=== PATIENT | female | born 1975 | race American Indian/Alaskan Native ===

== ENCOUNTER 2021-06-13 14:33 | Emergency (ER) | payer SELFPAY ==
[2021-06-13 15:17] VITALS: BP 141/85
--- NOTE | 2021-06-13 16:03 | XRay Report ---
CHEST 2 VIEWS INDICATION / CLINICAL INFORMATION: chest pain. COMPARISON: None available. FINDINGS: SUPPORT DEVICES: None. HEART / MEDIASTINUM: No significant abnormality. LUNGS / PLEURA: No significant pulmonary abnormality. No significant pleural effusion. No pneumothora x. ADDITIONAL FINDINGS: No significant additional findings. IMPRESSION: 1. No acute abnormality of the chest. Signer Name: Gonzalez Menon MD Signed: 06/13/2021 3:59 PM Workstation Name: [id number]
[2021-06-13 16:31] LABS: Alanine Aminotransferase 21 units/L (7-56); Albumin 4.2 g/dL (3.9-5); Blood Urea Nitrogen 9 mg/dL (7-17); Calcium 10.5 mg/dL (8.4-10.2); Hemolysis Index 2
[2021-06-13 16:33] LABS: Basophils % (Auto) 0.7 % (0.0-1.8); Eosinophils # (Auto) 0.1 K/mm3 (0.0-0.4); Eosinophils % (Auto) 1.4 % (0.0-4.3); Hemoglobin 13.9 gm/dl (10.1-14.3); Lymphocytes # (Auto) 1.7 K/mm3 (1.2-5.4); Lymphocytes % (Auto) 31.4 % (13.4-35.0); Mean Corpuscular HGB Conc 35 % (30-34); Mean Corpuscular Volume 84 fl (79-97); Monocytes # (Auto) 0.4 K/mm3 (0.0-0.8); Platelet Count 164 K/mm3 (140-440); Red Blood Count 4.77 M/mm3 (3.65-5.03); Red Cell Distribution Width 13.4 % (13.2-15.2)
[2021-06-13 16:36] LABS: BUN/Creatinine Ratio 15
[2021-06-13 17:09] LABS: INR 0.96 (0.87-1.13); Partial Thromboplastin Time 31.2 Sec. (24.2-36.6)
== END 2021-06-13 19:00 | disposition left against medical advice (07) ==
LOC: EEVIPCON 14:33 → ED 14:33
DX: R10.9 Unspecified abdominal pain (principal); Z53.21 Procedure and treatment not carried out due to patient leaving prior to being seen by health care provider
CPT/HCPCS: 36415; 71046; 80053; 84484; 85025; 85610; 85730; 93005

== ENCOUNTER 2021-08-06 16:45 | Emergency (ER) | payer SELFPAY ==
[2021-08-06] MEDS ORDERED: oxyCODONE /ACETAMINOPHEN 5-325MG TAB PO ONE (18:04)
[2021-08-06] MEDS ORDERED: ONDANSETRON 4 MG ODT TAB PO ONE (18:04)
[2021-08-06] MEDS ORDERED: cephALEXin 500 MG CAP PO ONE (18:04)
--- NOTE | 2021-08-06 18:53 | Emergency Department Report ---
ED General Adult HPI - General Chief complaint: Extremity Injury, Upper Stated complaint: SWOLLEN THUMB Source: patient Mode of arrival: Ambulatory Limitations: No Limitations - History of Present Illness Initial comments: Patient is a 46-year-old -[place] female with past medical history of DVTs, hypertension and anxiety who is currently on Eliquis presents to the ED w ith complaint of acute onset persistent nontraumatic distal right thumb pain and swelling for the last 1 week. Patient states that the pain has been persistent despite taking [id number] medications for pain. Patient denies chest pain, shortness of breath, traumatic injury, fall, heavy lifting, fever and chills, nausea and vomiting, numbness and tingling or weakness of right hand. MD Complaint: Right thumb pain and swelling -: week(s) (1) Location: right, upper extremity (Right thumb) Radiation: non-radiation Severity scale (0 -10): 10 Quality: aching, sharp Consistency: constant Improves with: none Worsens with: other (Palpation) Associated Symptoms: denies other symptoms. denies: confusion, chest pain, cough, diaphoresis, fever/chills, headaches, loss of appetite, malaise, nausea/vomiting, rash, seizure, shortness of breath, syncope, weakness - Related Data Home Medications Medication Instructions Recorded Confirmed Last Taken Xarelto 20 mg PO DAILY 03/11/15 03/11/15 03/10/15 09:00 Butalb/Acetamin/Caff 50-325-40 1 tab PO Q6HR PRN 03/13/15 03/13/15 Unknown [Fioricet] Previous Rx's Medication Instructions Recorded Last Taken Type Lisinopril 5 mg PO DAILY #30 03/14/15 Unknown Rx Pantoprazole [Protonix TAB] 40 mg PO QDAY #30 tablet 03/14/15 Unknown Rx Triamter/Hctz 37.5-25 mg 25 - 37.5 mg PO DAILY #30 tablet 03/14/15 Unknown Rx [Maxzide-25] Acetaminophen [Tylenol] 500 mg PO Q6HR PRN #40 tablet 08/06/21 Unknown Rx Clindamycin [Clindamycin CAP] 300 mg PO Q8H #30 cap 08/06/21 Unknown Rx traMADoL [Ultram] 50 mg PO Q6HR PRN #15 tablet 07/02/22 Unknown Rx Allergies Allergy/AdvReac Type Severity Reaction Status Date / Time No Known Allergies Allergy Unverified 03/11/15 14:28 ED Review of Systems ROS: Stated complaint: SWOLLEN THUMB Other details as noted in HPI Constitutional: denies: chills, fever Eyes: denies: eye pain, eye discharge, vision change ENT: denies: ear pain, throat pain Respiratory: denies: cough, shortness of breath, wheezing Cardiovascular: denies: chest pain, palpitations Endocrine: no symptoms reported Gastrointestinal: denies: abdominal pain, nausea, vomiting, diarrhea Genitourinary: denies: urgency, dysuria, discharge Musculoskeletal: joint swelling (Distal right thumb pain with swelling), arthralgia (Distal right thumb pain with swelling). denies: back pain, myalgia, other Skin: other (Mild erythematous maculopapular rash on distal right). denies: rash, lesions Neurological: denies: headache, weakness, paresthesias Psychiatric: denies: anxiety, depression Hematological/Lymphatic: denies: easy bleeding, easy bruising ED Past Medical Hx - Past Medical History Previous Medical History?: Yes Hx Hypertension: Yes Hx Deep Vein Thrombosis: Yes (LLE- chronic) Hx Psychiatric Treatment: Yes (anxiety) Hx Dementia: Yes Additional medical history: clots left leg - Surgical History Past Surgical History?: Yes Additional Surgical History: Tubaligation, Stents left leg - Social History Smoking Status: Never Smoker - Medications Home Medications: Home Medications Medication Instructions Recorded Confirmed Last Taken Type Xarelto 20 mg PO DAILY 03/11/15 03/11/15 03/10/15 09:00 History Butalb/Acetamin/Caff 50-325-40 1 tab PO Q6HR PRN 03/13/15 03/13/15 Unknown History [Fioricet] Lisinopril 5 mg PO DAILY #30 03/14/15 Unknown Rx Pantoprazole [Protonix TAB] 40 mg PO QDAY #30 tablet 03/14/15 Unknown Rx Triamter/Hctz 37.5-25 mg 25 - 37.5 mg PO DAILY #30 tablet 03/14/15 Unknown Rx [Maxzide-25] Acetaminophen [Tylenol] 500 mg PO Q6HR PRN #40 tablet 08/06/21 Unknown Rx Clindamycin [Clindamycin CAP] 300 mg PO Q8H #30 cap 08/06/21 Unknown Rx traMADoL [Ultram] 50 mg PO Q6HR PRN #15 tablet 08/06/21 Unknown Rx ED Physical Exam - General Limitations: No Limitations General appearance: alert, in no apparent distress - Head Head exam: Present: atraumatic, normocephalic, normal inspection - Eye Eye exam: Present: normal appearance, PERRL, EOMI Pupils: Present: normal accommodation - ENT ENT exam: Present: normal exam, normal orophraynx, mucous membranes moist, TM's normal bilaterally, normal external ear exam - Neck Neck exam: Present: normal inspection, full ROM. Absent: tenderness - Respiratory Respiratory exam: Present: normal lung sounds bilaterally. Absent: respiratory distress, wheezes, rales, rhonchi, chest wall tenderness, accessory muscle use, prolonged expiratory - Cardiovascular Cardiovascular Exam: Present: regular rate, normal rhythm, normal heart sounds. Absent: systolic murmur, diastolic murmur, rubs, gallop - GI/Abdominal GI/Abdominal exam: Present: soft, normal bowel sounds. Absent: tenderness, guarding, rebound, hyperactive bowel sounds, hypoactive bowel sounds, organomegaly - Extremities Exam Extremities exam: Present: normal inspection, full ROM, tenderness (Palpable distal right thumb tenderness with mild swelling due to erythematous maculo papular rash), normal capillary refill. Absent: pedal edema, joint swelling, calf tenderness - Back Exam Back exam: Present: normal inspection, full ROM. Absent: tenderness, CVA tenderness (R), CVA tenderness (L), muscle spasm, paraspinal tenderness, vertebral tenderness - Neurological Exam Neurological exam: Present: alert, oriented X3, CN II-XII intact, normal gait, reflexes normal - Psychiatric Psychiatric exam: Present: normal affect, normal mood - Skin Skin exam: Present: warm, dry, intact, normal color, rash (Mild erythematous maculopapular rash on distal right thumb) ED Course Vital Signs 08/06/21 17:00 Temperature 98.3 F Pulse Rate 82 Respiratory 18 Rate Blood Pressure 135/96 O2 Sat by Pulse 97 Oximetry ED Medical Decision Making - Medical Decision Making This is a 46-year-old -[place] female with past medical history of DVTs and who is currently on Eliquis presents to the ED with complaint of acute onset persistent nontraumatic distal right thumb pain and swelling for the last 1 week. Patient states that the pain has been persistent despite taking prkx-bpr-[id number] medications for pain. In the ED, patient is alert and oriented x3 and is not in any distress. Patient was treated for pain in the ED and was given initial oral antibiotics. On reevaluation, patient's pain is well controlled medication. Patient was discharged home on medications including antibiotics and pain medications and advised to follow-up with her primary care physician in 5 to 7 days for reevaluation or return to the ED immediately if symptoms get worse. - Differential Diagnosis Paronychia of right thumb; cellulitis of right thumb; Critical care attestation.: If time is entered above; I have spent that time in minutes in the direct care of this critically ill patient, excluding procedure time. ED Disposition Clinical Impression: Acute paronychia of right thumb, Cellulitis of right thumb Disposition: HOME / SELF CARE / HOMELESS Is pt being admited?: No Does the pt Need Aspirin: No Condition: Stable Instructions: Paronychia, Evke-ho-Yopt, Cellulitis, Adult, Adee-vb-[id number] Additional Instructions: Take medication with food, drink plenty of fluids and follow-up with your primary care physician in 7 to 10 days for reevaluation. Return to the ED immediately if symptoms get worse. Prescriptions: Acetaminophen [Tylenol] 500 mg PO Q6HR PRN #40 tablet PRN Reason: Pain , Severe (7-10) Clindamycin [Clindamycin CAP] 300 mg PO Q8H #30 cap traMADoL [Ultram] 50 mg PO Q6HR PRN #15 tablet PRN Reason: Pain Referrals: [facility] [Provider Group] - 7-[address] [facility] [Outside] - 7-10 days Time of Disposition: 18:56 Print Language: UKRAINIAN
[2021-08-06 19:17] VITALS: BP 130/70
== END 2021-08-06 19:16 | disposition home or self-care (01) ==
LOC: ED 16:45
DX: L03.011 Cellulitis of right finger (principal); I10 Essential (primary) hypertension; I82.409 Acute embolism and thrombosis of unspecified deep veins of unspecified lower extremity; F41.9 Anxiety disorder, unspecified; F03.90 Unspecified dementia, unspecified severity, without behavioral disturbance, psychotic disturbance, mood disturbance, and anxiety; Z98.890 Other specified postprocedural states
CPT/HCPCS: 99282; J3490; Q0162

== ENCOUNTER 2021-10-14 10:18 | Inpatient (IN) | payer SELFPAY ==
--- NOTE | 2021-10-14 11:45 | Emergency Department Report ---
HPI - General Chief Complaint: Chest Pain Time Seen by Provider: 10/14/21 11:14 - HPI HPI: Room 19 The patient is a 46-year-old female present with chief complaint of chest pain. Patient states this morning she developed pain in her left lower extremity, shortness of breath and substernal chest pain. Patient states she has tingling in her left hand associated with her chest pain. Patient states the pain described as sharp and intermittent in nature. Patient admits to nausea without vomiting associated with chest pain. Patient denies diaphoresis or fever. Patient denies history of cough. Patient does admit to pleurisy. Patient states her last stress test occurred last year but she does not recall the results. Patient states she has never had a cardiac catheterization ED Past Medical Hx - Past Medical History Hx Hypertension: Yes Hx Diabetes: Yes Hx Deep Vein Thrombosis: Yes (LLE- chronic) Hx Psychiatric Treatment: Yes (anxiety) Hx Dementia: Yes Additional medical history: clots left leg - Surgical History Past Surgical History?: No Additional Surgical History: Tubaligation, Stents left leg - Family History Family history: no significant - Social History Smoking Status: Never Smoker Substance Use Type: None (Denies illicit drug use) - Medications Home Medications: Home Medications Medication Instructions Recorded Confirmed Last Taken Type Xarelto 20 mg PO DAILY 03/11/15 03/11/15 03/10/15 09:00 History Butalb/Acetamin/Caff 50-325-40 1 tab PO Q6HR PRN 03/13/15 03/13/15 Unknown History [Fioricet] Lisinopril 5 mg PO DAILY #30 03/14/15 Unknown Rx Pantoprazole [Protonix TAB] 40 mg PO QDAY #30 tablet 03/14/15 Unknown Rx Triamter/Hctz 37.5-25 mg 25 - 37.5 mg PO DAILY #30 tablet 03/14/15 Unknown Rx [Maxzide-25] Acetaminophen [Tylenol] 500 mg PO Q6HR PRN #40 tablet 08/06/21 Unknown Rx Clindamycin [Clindamycin CAP] 300 mg PO Q8H #30 cap 08/06/21 Unknown Rx traMADoL [Ultram] 50 mg PO Q6HR PRN #15 tablet 08/06/21 Unknown Rx ED Review of Systems ROS: Stated complaint: CHEST PAIN, SOB Other details as noted in HPI Constitutional: denies: diaphoresis, fever Eyes: denies: eye pain ENT: denies: throat pain Respiratory: shortness of breath. denies: cough Cardiovascular: chest pain Endocrine: no symptoms reported Gastrointestinal: nausea. denies: vomiting Genitourinary: denies: dysuria Musculoskeletal: denies: back pain Neurological: paresthesias Physical Exam - Physical Exam Vital Signs: Vital Signs 10/14/21 10/14/21 10/14/21 10:29 10:55 10:58 Temperature 98.6 F Pulse Rate 91 H Respiratory 18 18 15 Rate Blood Pressure Blood Pressure 129/79 [Left] O2 Sat by Pulse 100 100 99 Oximetry 10/14/21 11:00 Temperature Pulse Rate 95 H Respiratory 18 Rate Blood Pressure 127/73 Blood Pressure [Left] O2 Sat by Pulse 100 Oximetry Physical Exam: GENERAL: The patient is well-developed well-nourished female lying on stretcher not appearing to be in acute distress. [] HEENT: Normocephalic. Atraumatic. Extraocular motions are intact. Patient has moist mucous membranes. NECK: Supple. Trachea midline CHEST/LUNGS: Clear to auscultation. There is no respiratory distress noted. HEART/CARDIOVASCULAR: Regular. There is no tachycardia. There is no gallop rub or murmur. 2+ left DP ABDOMEN: Abdomen is soft, nontender. Patient has normal bowel sounds. There is no abdominal distention. SKIN: There is no rash. There is no edema. There is no diaphoresis. NEURO: The patient is awake, alert, and oriented. The patient is cooperative. The patient has no focal neurologic deficits. The patient has normal speech MUSCULOSKELETAL: There is no tenderness to palpation of either calf. There is no evidence of acute injury. ED Course Vital Signs 10/14/21 10/14/21 10/14/21 10:29 10:55 10:58 Temperature 98.6 F Pulse Rate 91 H Respiratory 18 18 15 Rate Blood Pressure Blood Pressure 129/79 [Left] O2 Sat by Pulse 100 100 99 Oximetry 10/14/21 11:00 Temperature Pulse Rate 95 H Respiratory 18 Rate Blood Pressure 127/73 Blood Pressure [Left] O2 Sat by Pulse 100 Oximetry ED Medical Decision Making - Lab Data Result diagrams: 10/14/21 14:00 10/14/21 14:00 Laboratory Tests 10/14/21 10/14/2110/14/22 10:36 14:00 14:00 WBC 16.3 H RBC 5.06 H Hgb 14.5 H Hct 42.6 MCV 84 MCH 29 MCHC 34 RDW 13.2 Plt Count 151 Seg Neutrophils % Runway Model D-Dimer VBG pH Sodium 135 L Potassium 4.0 Chloride 99.8 Carbon Dioxide 25 Anion Gap 14 BUN 10 Creatinine 0.7 Estimated GFR > 60 BUN/Creatinine Ratio 14 Glucose 275 H POC Glucose 272 H Calcium 10.8 H Total Creatine Kinase 102 CK-MB (CK-2) < 1.0 CK-MB (CK-2) Rel Index 0.9 Troponin T < 0.010 NT-Pro-B Natriuret Pep 10.88 HCG, Qual 10/14/21 10/14/21 10/14/21 14:00 14:03 14:03 WBC RBC Hgb Hct MCV MCH MCHC RDW Plt Count Seg Neutrophils % D-Dimer < 135.00 VBG pH 7.362 Sodium Potassium Chloride Carbon Dioxide Anion Gap BUN Creatinine Estimated GFR BUN/Creatinine Ratio Glucose POC Glucose Calcium Total Creatine Kinase CK-MB (CK-2) CK-MB (CK-2) Rel Index Troponin T NT-Pro-B Natriuret Pep HCG, Qual Negative - EKG Data -: EKG Interpreted by Me EKG shows normal: sinus rhythm Rate: normal - EKG Data When compared to previous EKG there are: previous EKG unavailable Interpretation: nonspecific ST-T wave chandra (T wave inversions inferior laterally) - Radiology Data Radiology results: report reviewed (Chest x-ray), image reviewed (Chest x-ray) interpreted by me: Chest x-ray-no definite focal infiltrates, no pneumothorax [address] [id number] XRay Report Signed Patient: DEJUAN GREGG MR#: [id number] : 1975 Acct:[id number] Age/Sex: 46 / F ADM Date: 10/14/21 Loc: ED Attending Dr: Ordering Physician: AMANDA LINCOLN MD Date of Service: 10/14/21 Procedure(s): XR chest 1V ap Accession Number(s): [id number] cc: AMANDA LINCOLN MD Fluoro Time In Minutes: CHEST 1 VIEW 10/14/2021 3:58 PM INDICATION / CLINICAL INFORMATION: chest pain. COMPARISON: 06/13/2021 FINDINGS: SUPPORT DEVICES: None. HEART / MEDIASTINUM: No significant abnormality. LUNGS / PLEURA: No significant pulmonary or pleural abnormality. No pneumothorax. ADDITIONAL FINDINGS: No significant additional findings. IMPRESSION: 1. No acute findings. Signer Name: Mike Ansari DO Signed: 10/14/2021 5:06 PM Workstation Name: [id number] Transcribed By: BLAKE Dictated By: MIKE ANSARI DO Electronically Authenticated By: MIKE ANSARI DO Signed Date/Time: 10/14/211705 DD/ 05 TD/TT: - Differential Diagnosis ACS, PE, pericarditis, GERD, anxiety Critical care attestation.: If time is entered above; I have spent that time in minutes in the direct care of this critically ill patient, excluding procedure time. ED Disposition Clinical Impression: Chest pain Disposition: ADMITTED INPATIENT Is pt being admited?: Yes Does the pt Need Aspirin: Yes Condition: Fair Instructions: Nonspecific Chest Pain, Adult Time of Disposition: 17:33 (Care transferred to hospitalist (Dr. Ken)) Heart Score - HEART Score History: Moderately suspicious EKG: Non-specific Age: 45-65 Risk factors: 1-2 risk factors Troponin: < normal limit HEART Score: 4 - EKG Read Time Time EKG Completed: 10:35 EKG Read Time: 10:47
[2021-10-14] MEDS ORDERED: ASPIRIN 325 MG TAB PO ONE (12:01)
[2021-10-14 14:27] LABS: Hematocrit 42.6 % (30.3-42.9); Hemoglobin 14.5 gm/dl (10.1-14.3); Mean Corpuscular HGB Conc 34 % (30-34); Mean Corpuscular Volume 84 fl (79-97); Platelet Count 151 K/mm3 (140-440); Red Blood Count 5.06 M/mm3 (3.65-5.03); Red Cell Distribution Width 13.2 % (13.2-15.2)
[2021-10-14 14:56] LABS: Blood Urea Nitrogen 10 mg/dL (7-17); Calcium 10.8 mg/dL (8.4-10.2); Hemolysis Index 12
[2021-10-14 15:07] LABS: BUN/Creatinine Ratio 14; Creatine Kinase MB < 1.0 ng/mL (0.0-4.0)
[2021-10-14] MEDS ORDERED: fentaNYL 100 MCG/2 ML INJ IV ONE (16:48)
[2021-10-14] MEDS ORDERED: MORPHINE 2 MG/1 ML INJ IV PRN (16:49)
[2021-10-14] MEDS ORDERED: ACETAMINOPHEN 325 MG TAB PO PRN (16:49)
[2021-10-14] MEDS ORDERED: ONDANSETRON 4 MG/2 ML INJ IV PRN (16:49)
--- NOTE | 2021-10-14 17:10 | XRay Report ---
CHEST 1 VIEW 10/14/2021 3:58 PM INDICATION / CLINICAL INFORMATION: chest pain. COMPARISON: 06/13/2021 FINDINGS: SUPPORT DEVICES: None. HEART / MEDIASTINUM: No significant abnormality. LUNGS / PLEURA: No significant pulmonary or pleural abnormality. No pneumothorax. ADDITIONAL FINDINGS: No significant additional findings. IMPRESSION: 1. No acute findings. Signer Name: Mike Wright DO Signed: 10/14/2021 5:06 PM Workstation Name: [id number]
[2021-10-14 17:41] LABS: Basophils % (Manual) 0 % (0.0-1.8); Eosinophils % (Manual) 0 % (0.0-4.3); Hypochromasia 1+; Platelet Estimate Consistent w Auto; Total Cells Counted 100
--- NOTE | 2021-10-15 06:47 | History and Physical Report ---
History of Present Illness Date of examination: 10/14/21 Date of admission: 10/14/21 16:49 Chief complaint: Chest pain since a.m. History of present illness: 64-year-old female with obesity and hypertension and GERD comes in for chest pain since morning. Patient also developed pain in her left lower extremity. Her main complaint is chest pain. Radiated to her left hand. History tingling. No diaphoresis. No nausea. No vomiting. No shortness of breath. Patient had 1 stress test last year. But does not recall the results. Patient did not have cardiac cardiac cath. Patient is on Xarelto for left lower extremity DVT. Medications reconciled. No exacerbating or relieving. Chest pain - Past Medical History --Hypertension: Yes --Diabetes: Yes --Deep Vein Thrombosis: Yes (LLE- chronic) --Psychiatric Treatment: Yes (anxiety) --Dementia: Yes Additional medical history: clots left leg - Surgical History --Past Surgical History?: No --Additional Surgical History: Tubaligation, Stents left leg - Family History --Family history: no significant - Social History --Smoking Status: Never Smoker --Substance Use Type: None (Denies illicit drug use) - Medications Home Medications: Home Medications Medication Instructions Recorded Confirmed Last Taken Type Xarelto 20 mg PO DAILY 03/11/15 03/11/15 03/10/15 09:00 History Butalb/Acetamin/Caff 50-325-40 1 tab PO Q6HR PRN 03/13/15 03/13/15 Unknown History [Fioricet] Lisinopril 5 mg PO DAILY #30 03/14/15 Unknown Rx Pantoprazole [Protonix TAB] 40 mg PO QDAY #30 tablet 03/14/15 Unknown Rx Triamter/Hctz 37.5-25 mg 25 - 37.5 mg PO DAILY #30 tablet 03/14/15 Unknown Rx [Maxzide-25] Acetaminophen [Tylenol] 500 mg PO Q6HR PRN #40 tablet 08/06/21 Unknown Rx Clindamycin [Clindamycin CAP] 300 mg PO Q8H #30 cap 08/06/21 Unknown Rx traMADoL [Ultram] 50 mg PO Q6HR PRN #15 tablet 08/06/21 Unknown Rx Review of Systems ROS: Stated complaint: CHEST PAIN, SOB Other details as noted in HPI Constitutional: denies: diaphoresis, fever Eyes: denies: eye pain ENT: denies: throat pain Respiratory: shortness of breath. denies: cough Cardiovascular: chest pain Endocrine: no symptoms reported Gastrointestinal: nausea. denies: vomiting Genitourinary: denies: dysuria Musculoskeletal: denies: back pain Neurological: paresthesias Medications and Allergies Allergies Allergy/AdvReac Type Severity Reaction Status Date / Time shellfish derived Allergy Unknown Verified 10/14/21 10:32 sulfamethoxazole Allergy Unknown Verified 10/14/21 10:32 [From Bactrim] trimethoprim [From Bactrim] Allergy Unknown Verified 10/14/21 10:32 Home Medications Medication Instructions Recorded Confirmed Last Taken Type Xarelto 20 mg PO DAILY 03/11/15 03/11/15 03/10/15 09:00 History Butalb/Acetamin/Caff 50-325-40 1 tab PO Q6HR PRN 03/13/15 03/13/15 Unknown History [Fioricet] Lisinopril 5 mg PO DAILY #30 03/14/15 Unknown Rx Pantoprazole [Protonix TAB] 40 mg PO QDAY #30 tablet 03/14/15 Unknown Rx Triamter/Hctz 37.5-25 mg 25 - 37.5 mg PO DAILY #30 tablet 03/14/15 Unknown Rx [Maxzide-25] Acetaminophen [Tylenol] 500 mg PO Q6HR PRN #40 tablet 08/06/21 Unknown Rx Clindamycin [Clindamycin CAP] 300 mg PO Q8H #30 cap 08/06/21 Unknown Rx traMADoL [Ultram] 50 mg PO Q6HR PRN #15 tablet 08/06/21 Unknown Rx Active Meds: Active Medications Acetaminophen (Acetaminophen 325 Mg Tab) 650 mg PO Q4H PRN PRN Reason: Pain MILD(1-3)/Fever >100.5/CRAWLEY Morphine Sulfate (Morphine 2 Mg/1 Ml Inj) 2 mg IV Q4H PRN PRN Reason: Pain, Moderate (4-6) Ondansetron HCl (Ondansetron 4 Mg/2 Ml Inj) 4 mg IV Q8H PRN PRN Reason: Nausea And Vomiting Sodium Chloride (Sodium Chloride 0.9% 10 Ml Flush Syringe) 10 ml IV BID TARUN Last Admin: 10/14/21 22:47 Dose: 10 ml Sodium Chloride (Sodium Chloride 0.9% 10 Ml Flush Syringe) 10 ml IV PRN PRN PRN Reason: LINE FLUSH Exam - Constitutional Vitals: Temp Pulse Resp BP Pulse Ox 98.6 F 108 H 20 145/75 97 10/15/21 04:13 10/15/21 04:13 10/15/21 04:13 10/15/21 04:13 10/15/21 04:13 HEART Score - HEART Score EKG: Non-specific Age: 45-65 Risk factors: 1-2 risk factors Troponin: Troponin T < 0.010 ng/mL (0.00-0.029) 10/14/21 14:00 Troponin: < normal limit - Critical Actions Critical Actions: 4-6 pts:12-16.6% risk of adverse cardiac event. Should be admitted Results - Labs CBC & Chem 7: 10/14/21 14:00 10/14/21 14:00 Labs: Laboratory Last Values WBC 16.3 K/mm3 (4.5-11.0) H 10/14/21 14:00 RBC 5.06 M/mm3 (3.65-5.03) H 10/14/21 14:00 Hgb 14.5 gm/dl (10.1-14.3) H 10/14/21 14:00 Hct 42.6 % (30.3-42.9) 10/14/21 14:00 MCV 84 fl (79-97) 10/14/21 14:00 MCH 29 pg (28-32) 10/14/21 14:00 MCHC 34 % (30-34) 10/14/21 14:00 RDW 13.2 % (13.2-15.2) 10/14/21 14:00 Plt Count 151 K/mm3 (140-440) 10/14/21 14:00 Add Manual Diff Complete 10/14/21 14:00 Total Counted 100 10/14/21 14:00 Seg Neutrophils % [employer] 10/14/21 14:00 Seg Neuts % (Manual) 81.0 % (40.0-70.0) H 10/14/21 14:00 Band Neutrophils % 0 % 10/14/21 14:00 Lymphocytes % (Manual) 16.0 % (13.4-35.0) 10/14/21 14:00 Reactive Lymphs % (Man) 0 % 10/14/21 14:00 Monocytes % (Manual) 3.0 % (0.0-7.3) 10/14/21 14:00 Eosinophils % (Manual) 0 % (0.0-4.3) 10/14/21 14:00 Basophils % (Manual) 0 % (0.0-1.8) 10/14/21 14:00 Metamyelocytes % 0 % 10/14/21 14:00 Myelocytes % 0 % 10/14/21 14:00 Promyelocytes % 0 % 10/14/21 14:00 Blast Cells % 0 % 10/14/21 14:00 Nucleated RBC % Not Reportable 10/14/21 14:00 Seg Neutrophils # Man 13.2 K/mm3 (1.8-7.7) H 10/14/21 14:00 Band Neutrophils # 0.0 K/mm3 10/14/21 14:00 Lymphocytes # (Manual) 2.6 K/mm3 (1.2-5.4) 10/14/21 14:00 Abs React Lymphs (Man) 0.0 K/mm3 10/14/21 14:00 Monocytes # (Manual) 0.5 K/mm3 (0.0-0.8) 10/14/21 14:00 Eosinophils # (Manual) 0.0 K/mm3 (0.0-0.4) 10/14/21 14:00 Basophils # (Manual) 0.0 K/mm3 (0.0-0.1) 10/14/21 14:00 Metamyelocytes # 0.0 K/mm3 10/14/21 14:00 Myelocytes # 0.0 K/mm3 10/14/21 14:00 Promyelocytes # 0.0 K/mm3 10/14/21 14:00 Blast Cells # 0.0 K/mm3 10/14/21 14:00 WBC Morphology Not Reportable 10/14/21 14:00 Hypersegmented Neuts Not Reportable 10/14/21 14:00 Hyposegmented Neuts Not Reportable 10/14/21 14:00 Hypogranular Neuts Not Reportable 10/14/21 14:00 Smudge Cells Not Reportable 10/14/21 14:00 Toxic Granulation Not Reportable 10/14/21 14:00 Toxic Vacuolation Not Reportable 10/14/21 14:00 Dohle Bodies Not Reportable 10/14/21 14:00 Pelger-Huet Anomaly Not Reportable 10/14/21 14:00 Sera Rods Not Reportable 10/14/21 14:00 Platelet Estimate Consistent w auto 10/14/21 14:00 Clumped Platelets Not Reportable 10/14/21 14:00 Plt Clumps, EDTA Not Reportable 10/14/21 14:00 Large Platelets Not Reportable 10/14/21 14:00 Giant Platelets Not Reportable 10/14/21 14:00 Platelet Satelliting Not Reportable 10/14/21 14:00 Plt Morphology Comment Not Reportable 10/14/21 14:00 RBC Morphology Not Reportable 10/14/21 14:00 Dimorphic RBCs Not Reportable 10/14/21 14:00 Polychromasia Not Reportable 10/14/21 14:00 Hypochromasia 1+ 10/14/21 14:00 Poikilocytosis Not Reportable 10/14/21 14:00 Anisocytosis Not Reportable 10/14/21 14:00 Microcytosis Not Reportable 10/14/21 14:00 Macrocytosis Not Reportable 10/14/21 14:00 Spherocytes Not Reportable 10/14/21 14:00 Pappenheimer Bodies Not Reportable 10/14/21 14:00 Sickle Cells Not Reportable 10/14/21 14:00 Target Cells Not Reportable 10/14/21 14:00 Tear Drop Cells Not Reportable 10/14/21 14:00 Ovalocytes Not Reportable 10/14/21 14:00 Helmet Cells Not Reportable 10/14/21 14:00 [place] Bodies Not Reportable 10/14/21 14:00 [place] Rings Not Reportable 10/14/21 14:00 [place] Cells Not Reportable 10/14/21 14:00 Bite Cells Not Reportable 10/14/21 14:00 Crenated Cell Not Reportable 10/14/21 14:00 Elliptocytes Not Reportable 10/14/21 14:00 Acanthocytes (Spur) Not Reportable 10/14/21 14:00 Rouleaux Not Reportable 10/14/21 14:00 Hemoglobin C Crystals Not Reportable 10/14/21 14:00 Schistocytes Not Reportable 10/14/21 14:00 Malaria parasites Not Reportable 10/14/21 14:00 Wei Bodies Not Reportable 10/14/21 14:00 Hem Pathologist Commnt No 10/14/21 14:00 D-Dimer < 135.00 ng/mlDDU (0-234) 10/14/21 14:03 VBG pH 7.362 (7.320-7.420) 10/14/21 14:03 Sodium 135 mmol/L (137-145) L 10/14/21 14:00 Potassium 4.0 mmol/L (3.6-5.0) 10/14/21 14:00 Chloride 99.8 mmol/L (98-107) 10/14/21 14:00 Carbon Dioxide 25 mmol/L (22-30) 10/14/21 14:00 Anion Gap 14 mmol/L 10/14/21 14:00 BUN 10 mg/dL (7-17) 10/14/21 14:00 Creatinine 0.7 mg/dL (0.6-1.2) 10/14/21 14:00 Estimated GFR > 60 ml/min 10/14/21 14:00 BUN/Creatinine Ratio 14 % 10/14/21 14:00 Glucose 275 mg/dL (65-100) H 10/14/21 14:00 POC Glucose 272 mg/dL (70-105) H 10/14/21 10:36 Calcium 10.8 mg/dL (8.4-10.2) H 10/14/21 14:00 Total Creatine Kinase 102 units/L (30-135) 10/14/21 14:00 CK-MB (CK-2) < 1.0 ng/mL (0.0-4.0) 10/14/21 14:00 CK-MB (CK-2) Rel Index 0.9 (0-4) 10/14/21 14:00 Troponin T < 0.010 ng/mL (0.00-0.029) 10/14/21 14:00 NT-Pro-B Natriuret Pep 10.88 pg/mL (0-450) 10/14/21 14:00 HCG, Qual Negative (Negative) 10/14/21 14:00 Short CBC 10/14/21 Range/Units 14:00 WBC 16.3 H (4.5-11.0) K/mm3 Hgb 14.5 H (10.1-14.3) gm/dl Hct 42.6 (30.3-42.9) % Plt Count 151 (140-440) K/mm3 BMP 10/14/21 14:00 Sodium 135 L Potassium 4.0 Chloride 99.8 Carbon Dioxide 25 BUN 10 Creatinine 0.7 Glucose 275 H Calcium 10.8 H Cardiac Enzymes 10/14/21 Range/Units 14:00 Total Creatine Kinase 102 (30-135) units/L CK-MB (CK-2) < 1.0 (0.0-4.0) ng/mL Troponin T < 0.010 (0.00-0.029) ng/mL Cueto/IV: Voiding Method Toilet Assessment and Plan Advance Directives: Yes (Full code) VTE prophylaxis?: Chemical Plan of care discussed with patient/family: Yes - Patient Problems (1) Acute coronary syndrome Current Visit: Yes Status: Acute Plan to address problem: Chest pain work-up Serial troponins Lexiscan not available on the weekends. Patient may get Lexiscan as outpatient if troponins are negative (2) Hypertension Current Visit: Yes Status: Chronic Qualifiers: Hypertension type: primary hypertension Qualified Code(s): I10 - Essential (primary) hypertension Plan to address problem: Continue antihypertensives and adjust medications (3) DVT (deep venous thrombosis) Current Visit: Yes Status: Chronic Qualifiers: DVT location: lower extremity Plan to address problem: DVT in the past. Continue Xarelto. (4) PAD (peripheral artery disease) Current Visit: Yes Status: Acute Plan to address problem: Patient had stents bilaterally. Continue Xarelto. (5) GERD (gastroesophageal reflux disease) Current Visit: Yes Status: Acute Plan to address problem: Continue PPIs. (6) Leukocytosis Current Visit: Yes Status: Acute Plan to address problem: Possible demargination. Antibiotics were started. (7) Hyperglycemia Current Visit: Yes Status: Acute Plan to address problem: Possible new onset diabetes versus existing diabetes Check hemoglobin A1c Coverage for now (8) DVT prophylaxis Current Visit: Yes Status: Acute Plan to address problem: On heparin and GI prophylax (9) Advance care planning Current Visit: Yes Status: Acute Plan to address problem: Disease education conducted, care plan discussed follow-up diagnosis and prognosis discussed. Patient is full code. Patient acknowledged understanding of the care plan. +30 minutes.
[2021-10-15] MEDS ORDERED: traMADol 50 MG TAB PO PRN (06:51)
[2021-10-15] MEDS ORDERED: BUTALB/ACETAMINOPHEN/CAFFEINE TAB PO PRN (06:51)
[2021-10-15] MEDS: RIVAROXABAN 20 MG TAB PO SCH (09:55)
[2021-10-15] MEDS: PANTOPRAZOLE 40 MG TAB PO SCH (09:56)
[2021-10-15] MEDS: LISINOPRIL 5 MG TAB PO SCH (09:56)
[2021-10-15] MEDS: TRIAMTER/HCTZ 37.5-25 MG TAB PO SCH (09:56)
--- NOTE | 2021-10-15 18:42 | Progress Note ---
Assessment and Plan Assessment and plan: #Acute coronary syndromeruled out Unremarkable troponin x2 #SIRS without organ dysfunction Febrile to 102.8, heart rate 105, leukocytosis 16.3 Pending blood culture and urinalysis to determine hospitalist. Currently holding on antibiotics as the patient is currently hemodynamically stable. Low threshold for administering antibiotics should patient become hypotensive or unstable. Unremarkable coronavirus rapid exam. Pending coronavirus PCR. Status post IV fluid resuscitation. Continue to monitor. #Hypertension - home medications: Lisinopril 5 mg daily - current medications: Lisinopril 5 mg daily - SBP goal <160 and DBP goal <90 while inpatient - continue to monitor #GERD Continue home pantoprazole 40 mg daily #Noninsulin dependent type II diabetes mellitus with hyperglycemia - hemoglobin A1c: Pending hemoglobin A1c - home regimen: - current regimen: Moderate SSI - blood glucose goal 140-180 while inpatient - continue to monitor #Peripheral arterial disease complicated by bilateral stents #History of DVT Continue home Xarelto 20 mg daily #Morbid obesity #Weight loss counseling #Exercise counseling - BMI 37.9 - Counseled patient on the importance of weight loss, incorporating exercise, and dietary changes (lean meats, fresh fruits and vegetables, and water intake). Patient expresses understanding. - Time: +15 min #Advanced care planning -Disease education conducted, care plan discussed, diagnoses discussed, prognosis discussed, and patient acknowledges understanding with care plan -Time: +30 min Disposition Plan: Continue medical management Total Time Spent with Patient (Minutes): 45 minutes History Interval history: No acute events overnight. Hospitalist Physical - Constitutional Vitals: Temp Pulse Resp BP Pulse Ox 98.0 F 97 H 20 117/78 98 10/15/21 15:37 10/15/21 15:37 10/15/21 04:13 10/15/21 15:37 10/15/21 15:37 General appearance: Present: no acute distress, well-nourished, obese - EENT Eyes: Present: PERRL, EOM intact ENT: hearing intact, clear oral mucosa, dentition normal - Neck Neck: Present: supple, normal ROM - Respiratory Respiratory effort: normal Respiratory: bilateral: CTA - Cardiovascular Rhythm: regular Heart Sounds: Present: S1 & S2 - Extremities Extremities: no ischemia, pulses intact, pulses symmetrical, No edema, normal temperature, normal color, Full ROM Peripheral Pulses: within normal limits - Abdominal General gastrointestinal: soft, non-tender, non-distended, normal bowel sounds - Integumentary Integumentary: Present: clear, warm, dry - Psychiatric Psychiatric: appropriate mood/affect, intact judgment & insight, memory intact, cooperative - Neurologic Neurologic: CNII-XII intact, moves all extremities - Allied Health Allied health notes reviewed: nursing HEART Score - HEART Score EKG: Non-specific Age: 45-65 Risk factors: 1-2 risk factors Troponin: Troponin T < 0.010 ng/mL (0.00-0.029) 10/15/21 09:20 Troponin: < normal limit - Critical Actions Critical Actions: 4-6 pts:12-16.6% risk of adverse cardiac event. Should be admitted Results - Labs CBC & Chem 7: 10/14/21 14:00 10/14/21 14:00 Labs: Laboratory Last Values WBC 16.3 K/mm3 (4.5-11.0) H 10/14/21 14:00 RBC 5.06 M/mm3 (3.65-5.03) H 10/14/21 14:00 Hgb 14.5 gm/dl (10.1-14.3) H 10/14/21 14:00 Hct 42.6 % (30.3-42.9) 10/14/21 14:00 MCV 84 fl (79-97) 10/14/21 14:00 MCH 29 pg (28-32) 10/14/21 14:00 MCHC 34 % (30-34) 10/14/21 14:00 RDW 13.2 % (13.2-15.2) 10/14/21 14:00 Plt Count 151 K/mm3 (140-440) 10/14/21 14:00 Add Manual Diff Complete 10/14/21 14:00 Total Counted 100 10/14/21 14:00 Seg Neutrophils % Stile [employer]ips[employer] Operator 10/14/21 14:00 Seg Neuts % (Manual) 81.0 % (40.0-70.0) H 10/14/21 14:00 Band Neutrophils % 0 % 10/14/21 14:00 Lymphocytes % (Manual) 16.0 % (13.4-35.0) 10/14/21 14:00 Reactive Lymphs % (Man) 0 % 10/14/21 14:00 Monocytes % (Manual) 3.0 % (0.0-7.3) 10/14/21 14:00 Eosinophils % (Manual) 0 % (0.0-4.3) 10/14/21 14:00 Basophils % (Manual) 0 % (0.0-1.8) 10/14/21 14:00 Metamyelocytes % 0 % 10/14/21 14:00 Myelocytes % 0 % 10/14/21 14:00 Promyelocytes % 0 % 10/14/21 14:00 Blast Cells % 0 % 10/14/21 14:00 Nucleated RBC % Not Reportable 10/14/21 14:00 Seg Neutrophils # Man 13.2 K/mm3 (1.8-7.7) H 10/14/21 14:00 Band Neutrophils # 0.0 K/mm3 10/14/21 14:00 Lymphocytes # (Manual) 2.6 K/mm3 (1.2-5.4) 10/14/21 14:00 Abs React Lymphs (Man) 0.0 K/mm3 10/14/21 14:00 Monocytes # (Manual) 0.5 K/mm3 (0.0-0.8) 10/14/21 14:00 Eosinophils # (Manual) 0.0 K/mm3 (0.0-0.4) 10/14/21 14:00 Basophils # (Manual) 0.0 K/mm3 (0.0-0.1) 10/14/21 14:00 Metamyelocytes # 0.0 K/mm3 10/14/21 14:00 Myelocytes # 0.0 K/mm3 10/14/21 14:00 Promyelocytes # 0.0 K/mm3 10/14/21 14:00 Blast Cells # 0.0 K/mm3 10/14/21 14:00 WBC Morphology Not Reportable 10/14/21 14:00 Hypersegmented Neuts Not Reportable 10/14/21 14:00 Hyposegmented Neuts Not Reportable 10/14/21 14:00 Hypogranular Neuts Not Reportable 10/14/21 14:00 Smudge Cells Not Reportable 10/14/21 14:00 Toxic Granulation Not Reportable 10/14/21 14:00 Toxic Vacuolation Not Reportable 10/14/21 14:00 Dohle Bodies Not Reportable 10/14/21 14:00 Pelger-Huet Anomaly Not Reportable 10/14/21 14:00 Sera Rods Not Reportable 10/14/21 14:00 Platelet Estimate Consistent w auto 10/14/21 14:00 Clumped Platelets Not Reportable 10/14/21 14:00 Plt Clumps, EDTA Not Reportable 10/14/21 14:00 Large Platelets Not Reportable 10/14/21 14:00 Giant Platelets Not Reportable 10/14/21 14:00 Platelet Satelliting Not Reportable 10/14/21 14:00 Plt Morphology Comment Not Reportable 10/14/21 14:00 RBC Morphology Not Reportable 10/14/21 14:00 Dimorphic RBCs Not Reportable 10/14/21 14:00 Polychromasia Not Reportable 10/14/21 14:00 Hypochromasia 1+ 10/14/21 14:00 Poikilocytosis Not Reportable 10/14/21 14:00 Anisocytosis Not Reportable 10/14/21 14:00 Microcytosis Not Reportable 10/14/21 14:00 Macrocytosis Not Reportable 10/14/21 14:00 Spherocytes Not Reportable 10/14/21 14:00 Pappenheimer Bodies Not Reportable 10/14/21 14:00 Sickle Cells Not Reportable 10/14/21 14:00 Target Cells Not Reportable 10/14/21 14:00 Tear Drop Cells Not Reportable 10/14/21 14:00 Ovalocytes Not Reportable 10/14/21 14:00 Helmet Cells Not Reportable 10/14/21 14:00 [place] Bodies Not Reportable 10/14/21 14:00 [place] Rings Not Reportable 10/14/21 14:00 [place] Cells Not Reportable 10/14/21 14:00 Bite Cells Not Reportable 10/14/21 14:00 Crenated Cell Not Reportable 10/14/21 14:00 Elliptocytes Not Reportable 10/14/21 14:00 Acanthocytes (Spur) Not Reportable 10/14/21 14:00 Rouleaux Not Reportable 10/14/21 14:00 Hemoglobin C Crystals Not Reportable 10/14/21 14:00 Schistocytes Not Reportable 10/14/21 14:00 Malaria parasites Not Reportable 10/14/21 14:00 Wei Bodies Not Reportable 10/14/21 14:00 Hem Pathologist Commnt No 10/14/21 14:00 D-Dimer < 135.00 ng/mlDDU (0-234) 10/14/21 14:03 VBG pH 7.362 (7.320-7.420) 10/14/21 14:03 Sodium 135 mmol/L (137-145) L 10/14/21 14:00 Potassium 4.0 mmol/L (3.6-5.0) 10/14/21 14:00 Chloride 99.8 mmol/L (98-107) 10/14/21 14:00 Carbon Dioxide 25 mmol/L (22-30) 10/14/21 14:00 Anion Gap 14 mmol/L 10/14/21 14:00 BUN 10 mg/dL (7-17) 10/14/21 14:00 Creatinine 0.7 mg/dL (0.6-1.2) 10/14/21 14:00 Estimated GFR > 60 ml/min 10/14/21 14:00 BUN/Creatinine Ratio 14 % 10/14/21 14:00 Glucose 275 mg/dL (65-100) H 10/14/21 14:00 POC Glucose 272 mg/dL (70-105) H 10/14/21 10:36 Hemoglobin A1c 11.2 % (4-6) H 10/15/21 11:04 Calcium 10.8 mg/dL (8.4-10.2) H 10/14/21 14:00 Total Creatine Kinase 102 units/L (30-135) 10/14/21 14:00 CK-MB (CK-2) < 1.0 ng/mL (0.0-4.0) 10/14/21 14:00 CK-MB (CK-2) Rel Index 0.9 (0-4) 10/14/21 14:00 Troponin T < 0.010 ng/mL (0.00-0.029) 10/15/21 09:20 NT-Pro-B Natriuret Pep 10.88 pg/mL (0-450) 10/14/21 14:00 HCG, Qual Negative (Negative) 10/14/21 14:00 SARS-CoV-2 (PCR) Negative (Negative) 10/15/21 10:18 Microbiology: Microbiology 10/15/21 12:24 Peripheral/Venous Blood Culture - Preliminary Culture in Progress 10/15/21 11:04 Peripheral/Venous Blood Culture - Preliminary Culture in Progress Cueto/IV: Voiding Method Toilet Active Medications - Current Medications Current Medications: Generic Name Dose Route Start Last Admin Trade Name Eloyq PRN Reason Stop Dose Admin Acetaminophen 650 mg 10/14/21 16:49 10/15/21 17:31 Acetaminophen 325 Mg Tab PO 650 mg Q4H PRN Administration Pain MILD(1-3)/Fever >100.5/CRAWLEY Acetaminophen/Butalbital/Caffeine 1 tab 10/15/21 06:51 Butalb/Acetaminophen/Caffeine Tab PO Q6HR PRN Headache Lisinopril 5 mg 10/15/21 10:00 10/15/21 09:56 Lisinopril 5 Mg Tab PO 5 mg DAILY TARUN Administration Morphine Sulfate 2 mg 10/14/21 16:49 Morphine 2 Mg/1 Ml Inj IV Q4H PRN Pain, Moderate (4-6) Ondansetron HCl 4 mg 10/14/21 16:49 Ondansetron 4 Mg/2 Ml Inj IV Q8H PRN Nausea And Vomiting Pantoprazole Sodium 40 mg 10/15/21 10:00 10/15/21 09:56 Pantoprazole 40 Mg Tab PO 40 mg QDAY TARUN Administration Rivaroxaban 20 mg 10/15/21 10:00 10/15/21 09:55 Rivaroxaban 20 Mg Tab PO 20 mg DAILY TARUN Administration Sodium Chloride 10 ml 10/14/21 22:00 10/15/21 09:58 Sodium Chloride 0.9% 10 Ml Flush Syringe IV Not Given BID TARUN Sodium Chloride 10 ml 10/14/21 16:49 Sodium Chloride 0.9% 10 Ml Flush Syringe IV PRN PRN LINE FLUSH Tramadol HCl 50 mg 10/15/21 06:51 Tramadol 50 Mg Tab PO Q6HR PRN PAIN Triamterene/Hydrochlorothiazide 1 each 10/15/21 10:00 10/15/21 09:56 Triamter/Hctz 37.5-25 Mg Tab PO 1 each DAILY TARUN Administration
[2021-10-15] MEDS ORDERED: DEXTROSE 50% IN WATER (25GM) 50 ML SYRINGE IV PRN (18:43)
[2021-10-16] MEDS: INSULIN REGULAR, HUMAN 100 UNITS/1 ML SUB-Q SCH ×4 (07:24→17:23)
[2021-10-16] MEDS: LISINOPRIL 5 MG TAB PO SCH (09:09)
[2021-10-16] MEDS: INSULIN NPH/REGULAR 70/30 INJ SUB-Q SCH ×2 (09:09→17:23)
[2021-10-16] MEDS: PANTOPRAZOLE 40 MG TAB PO SCH (09:09)
[2021-10-16] MEDS: RIVAROXABAN 20 MG TAB PO SCH (09:10)
[2021-10-16] MEDS: TRIAMTER/HCTZ 37.5-25 MG TAB PO SCH (09:10)
[2021-10-16] MEDS ORDERED: metFORMIN XR 500MG TAB PO SCH (10:00)
[2021-10-16 11:08] LABS: BUN/Creatinine Ratio 20; Blood Urea Nitrogen 12 mg/dL (7-17); Calcium 11.1 mg/dL (8.4-10.2); Hemolysis Index 5
[2021-10-16 11:26] LABS: Basophils % (Auto) 0.4 % (0.0-1.8); Eosinophils # (Auto) 0.1 K/mm3 (0.0-0.4); Eosinophils % (Auto) 1.2 % (0.0-4.3); Hematocrit 42.9 % (30.3-42.9); Hemoglobin 14.4 gm/dl (10.1-14.3); Lymphocytes # (Auto) 1.4 K/mm3 (1.2-5.4); Mean Corpuscular HGB Conc 34 % (30-34); Mean Corpuscular Volume 84 fl (79-97); Monocytes # (Auto) 0.6 K/mm3 (0.0-0.8); Monocytes % (Auto) 8.1 % (0.0-7.3); Platelet Count 152 K/mm3 (140-440); Red Blood Count 5.09 M/mm3 (3.65-5.03)
--- NOTE | 2021-10-16 13:46 | Electrocardiograph Report ---
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
--- NOTE | 2021-10-16 13:47 | Discharge Summary ---
Providers - Providers Date of Admission: 10/14/21 16:49 Date of discharge: 10/16/21 Attending physician: ALENA PEÑA MD Primary care physician: KRISTIN JACOBSON Hospitalization Reason for admission: Acute coronary syndrome Condition: Fair Pertinent studies: Reviewed. Procedures: None. Hospital course: Patient is a 46-year-old female past medical history of hypertension, insulin- dependent type 2 diabetes mellitus with hyperglycemia, chronic left lower extremity DVT (on Xarelto 20 mg daily), and morbid obesity who presented to the ED with complaints of chest pain, shortness of breath, and tingling of her left hand associated with her chest pain. She described the pain as sharp and intermittent in nature with associated nausea but without vomiting. Patient denied any diaphoresis or fever or sick contacts. Patient endorsed having a stress test in May 2021 but she could not recall the results. She did deny ever having left heart catheterization. In the ED, the patient was found to be hemodynamically stable with labs remarkable for glucose of 275 and WBC 16.3. Patient was admitted for further management due to her chest pain. Patient became febrile to 102.8 F prompting concern and an additional night of observation. The patient's leukocytosis has since resolved without the need of antibiotics. Patient was found to be unremarkable for COVID-19. The patient was counseled at length about the importance of glycemic control given her hemoglobin A1c of 11.2. Patient was counseled about dietary changes, exercising, and weight loss. The patient expressed understanding. The patient is medically clear for discharge. Disposition: 01 HOME / SELF CARE / HOMELESS Final Discharge Diagnosis (Prints w/discharge instructions): Acute coronary syndromeruled out, SIRS without organ dysfunction, hypertension, GERD, insulin- dependent type 2 diabetes mellitus with hyperglycemia, peripheral arterial disease complicated by bilateral stents, history of chronic DVT, morbid obesity. Time spent for discharge: 45 min Core Measure Documentation - Palliative Care Palliative Care/ Comfort Measures: Not Applicable - Core Measures Any of the following diagnoses?: history only Exam - Constitutional Vitals: Temp Pulse Resp BP Pulse Ox 98.2 F 93 H 20 126/88 100 10/16/21 08:01 10/16/21 08:01 10/16/21 04:36 10/16/21 08:01 10/16/21 08:01 General appearance: Present: no acute distress, well-nourished, obese - EENT Eyes: Present: PERRL, EOM intact ENT: hearing intact, clear oral mucosa, dentition normal - Neck Neck: Present: supple, normal ROM - Respiratory Respiratory effort: normal Respiratory: bilateral: CTA - Cardiovascular Rhythm: regular Heart Sounds: Present: S1 & S2 - Extremities Extremities: no ischemia, pulses intact, pulses symmetrical, No edema, normal temperature, normal color, Full ROM Peripheral Pulses: within normal limits - Abdominal General gastrointestinal: Present: soft, non-tender, non-distended, normal bowel sounds Female genitourinary: Present: deferred - Rectal Rectal Exam: deferred - Integumentary Integumentary: Present: clear, warm, dry - Musculoskeletal Musculoskeletal: strength equal bilaterally - Psychiatric Psychiatric: appropriate mood/affect, intact judgment & insight, memory intact, cooperative - Neurologic Neurologic: CNII-XII intact, moves all extremities - Allied Health Allied health notes reviewed: nursing Plan Activity: no restrictions Diet: low salt, diabetic Additional Instructions: Patient is a 46-year-old female past medical history of hypertension, insulin-dependent type 2 diabetes mellitus with hyperglycemia, chronic left lower extremity DVT (on Xarelto 20 mg daily), and morbid obesity who presented to the ED with complaints of chest pain, shortness of breath, and tingling of her left hand associated with her chest pain. She described the pain as sharp and intermittent in nature with associated nausea but without vomiting. Patient denied any diaphoresis or fever or sick contacts. Patient endorsed having a stress test in May 2021 but she could not recall the results. She did deny ever having left heart catheterization. In the ED, the patient was found to be hemodynamically stable with labs remarkable for glucose of 275 and WBC 16.3. Patient was admitted for further management due to her chest pain. Patient became febrile to 102.8 F prompting concern and an additional night of observation. The patient's leukocytosis has since resolved without the need of antibiotics. Patient was found to be unremarkable for COVID-19. The patient was counseled at length about the importance of glycemic control given her hemoglobin A1c of 11.2. Patient was counseled about dietary changes, exercising, and weight loss. The patient expressed understanding. The patient is medically clear for discharge. Care Plan Goals: Patient is medically clear for discharge. Assessment: Patient is a 46-year-old female past medical history of hypertension, insulin- dependent type 2 diabetes mellitus with hyperglycemia, chronic left lower extremity DVT (on Xarelto 20 mg daily), and morbid obesity who presented to the ED with complaints of chest pain, shortness of breath, and tingling of her left hand associated with her chest pain. She described the pain as sharp and intermittent in nature with associated nausea but without vomiting. Patient denied any diaphoresis or fever or sick contacts. Patient endorsed having a stress test in May 2021 but she could not recall the results. She did deny ever having left heart catheterization. In the ED, the patient was found to be hemodynamically stable with labs remarkable for glucose of 275 and WBC 16.3. Patient was admitted for further management due to her chest pain. Patient became febrile to 102.8 F prompting concern and an additional night of observation. The patient's leukocytosis has since resolved without the need of antibiotics. Patient was found to be unremarkable for COVID-19. The patient was counseled at length about the importance of glycemic control given her hemoglobin A1c of 11.2. Patient was counseled about dietary changes, exercising, and weight loss. The patient expressed understanding. The patient is medically clear for discharge. Follow up with: KRISTIN JACOBSON MD [Primary Care Provider] - 3-5 Days Forms: Work/School Release Form
[2021-10-16 14:02] VITALS: BP 117/78
== END 2021-10-16 17:56 | disposition home or self-care (01) | DRG 313 ==
LOC: ED 10:18 → 4A 16:49
PROVIDERS: ADMIT Internal Medicine; ATTEND Student in an Organized Health Care Education/Training Program
DX: R07.89 Other chest pain (principal); R65.10 Systemic inflammatory response syndrome (SIRS) of non-infectious origin without acute organ dysfunction; Z20.822 Contact with and (suspected) exposure to COVID-19; F41.9 Anxiety disorder, unspecified; I10 Essential (primary) hypertension; F03.90 Unspecified dementia, unspecified severity, without behavioral disturbance, psychotic disturbance, mood disturbance, and anxiety; K21.9 Gastro-esophageal reflux disease without esophagitis; E11.51 Type 2 diabetes mellitus with diabetic peripheral angiopathy without gangrene; E11.65 Type 2 diabetes mellitus with hyperglycemia; E66.01 Morbid (severe) obesity due to excess calories; Z68.37 Body mass index [BMI] 37.0-37.9, adult; Z71.3 Dietary counseling and surveillance; Z98.51 Tubal ligation status; Z79.899 Other long term (current) drug therapy
CPT/HCPCS: 36415; 71045; 80048; 82550; 82553; 82805; 82962; 83036; 83880; 84484; 84703; 85007; 85025; 85379; 87040; 93005; 96374; 99285; G0378; Q0177; Q9967; J1815; J3010; U0003